=== PATIENT | female | born 1965 ===

== ENCOUNTER 2021-02-12 16:59 | Inpatient (IN) ==
[2021-02-12] MEDS ORDERED: niCARdipine INJ 25 MG in SODIUM CHLORIDE 0.9% 240 ML IV PRN (19:24)
[2021-02-12] MEDS ORDERED: ALBUTEROL 2.5 MG/3 ML NEB RESP TX PRN (20:14)
[2021-02-12] MEDS ORDERED: ONDANSETRON 4 MG/2 ML VIAL IV PRN (20:14)
[2021-02-12] MEDS ORDERED: ACETAMINOPHEN 325 MG TABLET PO PRN (20:14)
[2021-02-12] MEDS ORDERED: DOCUSATE SODIUM 100 MG CAPSULE PO PRN (20:14)
[2021-02-12] MEDS: ENOXAPARIN 40 MG/0.4 ML SYRINGE SUBCUT SCH (22:01)
[2021-02-13] MEDS ORDERED: niCARdipine INJ 50 MG in SODIUM CHLORIDE 0.9% 500 ML IV PRN (00:43)
[2021-02-13] MEDS ORDERED: niCARdipine INJ 50 MG in SODIUM CHLORIDE 0.9% 480 ML IV PRN (01:00)
[2021-02-13 03:50] LABS: Basophils % 0.3 % (0.0-0.8); Eosinophils % 0.7 % (0.00-10.9); Hematocrit 38.2 VOL% (35.7-47.0); Immature Granulocytes % 0.7 %; Immature Granulocytes Absolute 0.04 #; Lymphocytes # 1.4 10*3/uL (1.4-4.0); Lymphocytes % 23.4 % (21.3-54.2); Mean Corpuscular Volume 98.7 FL (87-102); Mean Platelet Volume 10.8 FL (9.6-12.0); Monocytes % 6.7 % (1.7-12.7); Neutrophils % 68.2 % (38.7-73.9); Platelet Count 202 T/CUMM (130-400); Red Blood Count 3.87 MC/CUMM (3.8-5.5); Red Cell Distribution Width 12.9 % (9.3-17.3); White Blood Count 5.9 T/CUMM (4-12)
[2021-02-13 04:14] LABS: Albumin 3.2 G/DL (3.4-5.0); Bilirubin,Total 0.8 MG/DL (0.2-1.0); Calcium 8.4 MG/DL (8.5-10.1); Osmolality,Calculated 284.8 MOS/KG (273-304); Potassium 3.2 MMOL/L (3.5-5.1); Risk Ratio 3.54; Thyroid Stimulating Hormone 2.96 uIU/ml (0.358-3.74); Total Protein 6.5 G/DL (6.4-8.2); VLDL CHOLESTEROL 19.8 MG/DL
[2021-02-13] MEDS: POTASSIUM CHLORIDE 20 MEQ TABLET PO PRN ×4 (08:34→14:30)
[2021-02-13] MEDS: lisinopriL 10 MG TABLET PO SCH (08:34)
[2021-02-13 10:38] LABS: Troponin I 0.023 NG/ML (0.00-0.045)
[2021-02-13 13:15] LABS: Troponin I 0.021 NG/ML (0.00-0.045)
[2021-02-13] MEDS ORDERED: ATROPINE 1 MG/10 ML SYRINGE IV PRN (14:57)
[2021-02-13] MEDS: ENOXAPARIN 40 MG/0.4 ML SYRINGE SUBCUT SCH (20:13)
[2021-02-14] MEDS: hydrALAZINE 20 MG/1 ML VIAL IV PRN ×2 (00:49→22:07)
[2021-02-14 05:57] LABS: Basophils % 0.2 % (0.0-0.8); Eosinophils # 0.1 10*3/uL (0.0-0.87); Eosinophils % 2.4 % (0.00-10.9); Hematocrit 39.1 VOL% (35.7-47.0); Hemoglobin 13.1 GM/DL (12.0-16.0); Immature Granulocytes % 0.7 %; Immature Granulocytes Absolute 0.04 #; Lymphocytes # 1.1 10*3/uL (1.4-4.0); Lymphocytes % 19.8 % (21.3-54.2); Mean Corpuscular HGB Conc 33.5 GM/DL (32-36); Mean Corpuscular Volume 100.5 FL (87-102); Mean Platelet Volume 10.3 FL (9.6-12.0); Monocytes % 6.7 % (1.7-12.7); Neutrophils % 70.2 % (38.7-73.9); Platelet Count 199 T/CUMM (130-400); Red Blood Count 3.89 MC/CUMM (3.8-5.5); Red Cell Distribution Width 12.9 % (9.3-17.3); White Blood Count 5.4 T/CUMM (4-12)
[2021-02-14 06:26] LABS: Calcium 8.4 MG/DL (8.5-10.1); Potassium 3.6 MMOL/L (3.5-5.1)
[2021-02-14 06:33] LABS: Eosinophils 2 % (0-10); Total Cells Counted 100
[2021-02-14 06:34] LABS: Anisocytosis 1+; Lymphocytes 20 % (20-55); Macrocytosis 1+; Platelet Estimate Normal; Segmented Neutrophils 71 % (50-85)
[2021-02-14] MEDS ORDERED: ceFAZolin 1,000 MG VIAL IRRIG ONE (08:00)
[2021-02-14] MEDS ORDERED: diphenhydrAMINE CAP 25 MG CAPSULE PO ONE (08:00)
[2021-02-14] MEDS ORDERED: ceFAZolin 1,000 MG in SYRINGE 1 EACH IV ONE ×2 (08:00→12:30)
[2021-02-14] MEDS ORDERED: DIAZEPAM 5 MG TABLET PO ONE (08:00)
[2021-02-14] MEDS: lisinopriL 10 MG TABLET PO SCH ×2 (08:05→09:53)
[2021-02-14] MEDS: POTASSIUM CHLORIDE 20 MEQ TABLET PO PRN (09:10)
[2021-02-14] MEDS ORDERED: ceFAZolin 1,000 MG VIAL ONE ×2 (12:03)
[2021-02-14] MEDS ORDERED: LIDOCAINE 1%/EPI INJ 20 ML VIAL ONE (12:03)
[2021-02-14] MEDS ORDERED: TISSUE ADHESIVE 1 EACH APPLICATOR TOP ONE (12:03)
[2021-02-14] MEDS ORDERED: HYDROmorphone 2 MG/1 ML VIAL ONE (12:47)
[2021-02-14] MEDS ORDERED: MIDAZOLAM 2 MG/2 ML VIAL ONE (12:48)
[2021-02-14] MEDS: ENOXAPARIN 40 MG/0.4 ML SYRINGE SUBCUT SCH (20:17)
[2021-02-15 05:21] LABS: Basophils % 0.3 % (0.0-0.8); Eosinophils # 0.1 10*3/uL (0.0-0.87); Eosinophils % 0.9 % (0.00-10.9); Hematocrit 39.4 VOL% (35.7-47.0); Hemoglobin 13.2 GM/DL (12.0-16.0); Immature Granulocytes % 0.3 %; Immature Granulocytes Absolute 0.02 #; Lymphocytes % 16.3 % (21.3-54.2); Mean Corpuscular HGB Conc 33.5 GM/DL (32-36); Mean Corpuscular Volume 101.3 FL (87-102); Mean Platelet Volume 10.5 FL (9.6-12.0); Neutrophils % 75.2 % (38.7-73.9); Platelet Count 198 T/CUMM (130-400); Red Blood Count 3.89 MC/CUMM (3.8-5.5); Red Cell Distribution Width 12.9 % (9.3-17.3); White Blood Count 5.9 T/CUMM (4-12)
[2021-02-15 06:09] LABS: Calcium 8.6 MG/DL (8.5-10.1); Osmolality,Calculated 279.4 MOS/KG (273-304); Potassium 4.2 MMOL/L (3.5-5.1)
[2021-02-15] MEDS: lisinopriL 10 MG TABLET PO SCH (08:20)
== END 2021-02-15 13:27 | disposition home or self-care (01) | DRG 243 ==
LOC: N.CC 19:10 → SUATTDRO 19:10
PROVIDERS: ADMIT Internal Medicine; ATTEND Internal Medicine